=== PATIENT | male | born 1985 ===

== ENCOUNTER 2016-07-27 16:17 | Emergency (ER) | payer OTHER ==
[2016-07-27 16:37] VITALS: BP 109/51
[2016-07-27] MEDS ORDERED: cefTRIAXone VIAL(*) 1,000 MG VIAL IM ONE (17:27)
--- NOTE | 2016-07-27 17:27 | UC ---
[facility] HPI - HPI Summary HPI Summary: patient has been complaining of two days of ear pain, state it is very sore behind the left ear. area is swollen, lymphadenopathy noted. - History of Current Complaint Chief Complaint: UCEar Stated Complaint: LEFT EAR COMPLAINT Time Seen by Provider: 07/27/16 17:13 Hx Obtained From: Patient Onset/Duration: Sudden Onset, Lasting Days Severity: Moderate Pain Intensity: 4 Pain Scale Used: 0-10 Numeric Aggravating: Chewing Alleviating: Nothing Related History: Swelling, Other - erythema along back of oral mucosa on the right, cant open mouth all the way - Allergies/Home Medications Allergies/Adverse Reactions: Allergies Allergy/AdvReac Type Severity Reaction Status Date / Time Amoxicillin Allergy Hives Verified 07/27/16 16:38 Cefaclor [From [facility]] Allergy Hives Verified 07/27/16 16:38 Erythromycin Allergy Hives Verified 07/27/16 16:38 Penicillins Allergy Hives Verified 07/27/16 16:38 Home Medications: Home Medications Ibuprofen TAB* [Advil TAB*] 400 mg PO Q6H PRN 07/27/16 [History Confirmed ] PMH/Surg Hx/FS Hx/Imm Hx Previously Healthy: Yes - Surgical History Surgical History: None - Family History Known Family History: Positive: Cardiac Disease, Hypertension - Social History Alcohol Use: None Substance Use Type: None Smoking Status (MU): Heavy Every Day Tobacco Smoker Review of Systems Constitutional: Negative Skin: Negative Eyes: Negative ENT: Dental Pain, Sore Throat, Ear Ache Respiratory: Negative Cardiovascular: Negative Gastrointestinal: Negative Genitourinary: Negative Motor: Negative Neurovascular: Negative Musculoskeletal: Negative Neurological: Headache Psychological: Negative All Other Systems Reviewed And Are Negative: Yes Physical Exam Triage Information Reviewed: Yes Appearance: Well-Nourished, Ill-Appearing, Pain Distress Vital Signs: Initial Vital Signs Temp 98.3 F 07/27/16 16:34 Pulse 75 07/27/16 16:34 Resp 16 07/27/16 16:34 BP 109/51 07/27/16 16:34 Pulse Ox 99 07/27/16 16:34 Vital Signs Reviewed: Yes Eye Exam: Normal ENT: Positive: Pharyngeal erythema, Tonsillar swelling Dental Exam: Normal Dental: Positive: Abscess @ - at back tooth left side, Cellulitis @ - along left oral mucosa Neck exam: Normal Neck: Positive: Supple, Nontender, Enlarged Nodes @ - left behind the ear Respiratory Exam: Normal Respiratory: Positive: Chest non-tender, Lungs clear, Normal breath sounds Cardiovascular Exam: Normal Cardiovascular: Positive: RRR, No Murmur, Pulses Normal Abdominal Exam: Normal Abdomen Description: Positive: Nontender, No Organomegaly, Soft Bowel Sounds: Positive: Present Musculoskeletal Exam: Normal Musculoskeletal: Positive: Strength Intact, ROM Intact, No Edema Neurological Exam: Normal Neurological: Positive: Alert, Muscle Tone Normal Psychological Exam: Normal Skin Exam: Normal Dental Complaint Course/Dx - Course Course Of Treatment: hx obtained, exam performed, rochephin given IM, benadryl prescribed for possible hives, patient hsa multiple abx allergies, discussed the risk and benefits, will montior post injection and sen home with benadryl. encourage follow up with denitist if pain persists - Differential Dx/Diagnosis Differential Diagnosis/Dx: Dental Abscess, Dental Caries, Peritonsillar Abcess, Pharyngitis, Tonsillitis Provider Diagnoses: oral infection. lymphadenopathy Discharge - Discharge Plan Condition: Stable Disposition: HOME Patient Education Materials: Dental Abscess (ED) Additional Instructions: take the medication as prescribed. Use the benadryl as needed for any hives, if you develope any severe SOB, facial swelling or throat pain report to ER. Otherwise continue with ibuprofen for pain, warm compress to the area and salt water gargles. follow up with dentist if persists with treatment.
[2016-07-27] MEDS ORDERED: Lidocaine 1%* 5 ML VIAL ONE (17:31)
== END 2016-07-27 18:00 | disposition home or self-care (01) ==
LOC: UCCORT 16:17
DX: K12.2 Cellulitis and abscess of mouth (principal); R59.1 Generalized enlarged lymph nodes; Z88.1 Allergy status to other antibiotic agents; Z88.0 Allergy status to penicillin; F17.210 Nicotine dependence, cigarettes, uncomplicated
CPT/HCPCS: 96372; 99202; G0463; J0696

== ENCOUNTER 2016-09-20 09:53 | Emergency (ER) | payer OTHER ==
[2016-09-20 10:29] VITALS: BP 135/68
--- NOTE | 2016-09-20 10:32 | ED ---
Upper Extremity Pain - HPI Summary HPI Summary: 30 yr old male with right forearm pain. Onset last evening. A refigerator fell on his arm when he was using a pat up a ramp. he has no other complaints. The pain level is 5/10. He has pain localized to the mid forearm. - History of Current Complaint Chief Complaint: UCUpperExtremity Stated Complaint: RIGHT ARM INJURY Time Seen by Provider: 09/20/16 10:22 - Allergies/Home Medications Allergies/Adverse Reactions: Allergies Allergy/AdvReac Type Severity Reaction Status Date / Time Amoxicillin Allergy Hives Verified 09/20/16 10:16 Cefaclor [From Ceclor] Allergy Hives Verified 09/20/16 10:16 Erythromycin Allergy Hives Verified 09/20/16 10:16 Penicillins Allergy Hives Verified 09/20/16 10:16 PMH/Surg Hx/FS Hx/Imm Hx Infectious Disease History: No Infectious Disease History: Denies: Traveled Outside the [place] in Last 30 Days - Family History Known Family History: Positive: Cardiac Disease, Hypertension - Social History Alcohol Use: None Substance Use Type: Reports: None Smoking Status (MU): Light Every Day Tobacco Smoker Type: Cigarettes Amount Used/How Often: 7 cigarettes daily Review of Systems Constitutional: Negative Eyes: Negative ENT: Negative Positive: Other - forearm pain All Other Systems Reviewed And Are Negative: Yes Physical Exam Triage Information Reviewed: Yes Vital Signs On Initial Exam: Initial Vitals Temp Pulse Resp BP Pulse Ox 98.4 F 86 16 135/68 98 09/20/16 10:16 09/20/16 10:16 09/20/16 10:16 09/20/16 10:16 09/20/16 10:16 Vital Signs Reviewed: Yes Appearance: Positive: Well-Appearing, No Pain Distress Head/Face: Positive: Normal Head/Face Inspection Eyes: Positive: Normal, EOMI ENT: Positive: Normal ENT inspection Dental: Positive: Percussion Tenderness @ Respiratory/Lung Sounds: Positive: Clear to Auscultation Cardiovascular: Positive: Pulses are Symmetrical in both Upper and Lower Extremities - radial pulses symmetric. Legs not examined. Musculoskeletal: Positive: Other - right forearm, mid shaft radius with tenderness, slight soft tissue swelling. No crepitance. Neurological: Positive: Normal, Sensory/Motor Intact, Alert, Oriented to Person Place, Time, CN Intact II-III Psychiatric: Positive: Normal Diagnostics - Vital Signs Vital Signs Temp Pulse Resp BP Pulse Ox 09/20/16 10:16 98.4 F 86 16 135/68 98 - Laboratory Lab Statement: Any lab studies that have been ordered have been reviewed, and results considered in the medical decision making process. Course/Dx - Course Course Of Treatment: 30 yr old male with contusion to forearm. DC home follow up with pMD. - Diagnoses Provider Diagnoses: Contusion, forearm Discharge - Discharge Plan Condition: Good Disposition: HOME Patient Education Materials: Contusion in Adults (ED) Referrals: Janee MANJARREZ,Hay Maciel [Primary Care Provider] -
--- NOTE | 2016-09-20 10:48 | RAD ---
HISTORY: Crush injury to right forearm COMPARISONS: None VIEWS: 2, Frontal and lateral views of the right forearm FINDINGS: BONE DENSITY: Normal. BONES: There is no displaced fracture. JOINTS: There is no arthropathy. ALIGNMENT: There is no dislocation. SOFT TISSUES: Unremarkable. OTHER FINDINGS: None. IMPRESSION: NO ACUTE OSSEOUS INJURY. IF SYMPTOMS PERSIST, RECOMMEND REPEAT IMAGING.
== END 2016-09-20 11:09 | disposition home or self-care (01) ==
LOC: UCCORT 09:53
DX: S50.11XA Contusion of right forearm, initial encounter (principal); W20.8XXA Other cause of strike by thrown, projected or falling object, initial encounter; Y93.9 Activity, unspecified; Y99.9 Unspecified external cause status; I10 Essential (primary) hypertension; F17.210 Nicotine dependence, cigarettes, uncomplicated; Z88.1 Allergy status to other antibiotic agents; Z88.0 Allergy status to penicillin
CPT/HCPCS: 99212; G0463

== ENCOUNTER 2016-10-20 11:35 | Emergency (ER) | payer OTHER ==
[2016-10-20] MEDS ORDERED: Fluorescein Sodium TOPICAL* 1 MG TEST OPHTHALMIC ONE (11:57)
[2016-10-20] MEDS ORDERED: Eye Irrigation Solution 30 ML BOTTLE RIGHT EYE ONE (11:59)
[2016-10-20] MEDS ORDERED: Tetracaine 0.5% OPTH.SOL 4 ML* 1 DROP BTL RIGHT EYE SCH (12:00)
[2016-10-20 12:02] VITALS: BP 129/66
[2016-10-20] MEDS ORDERED: Tetracaine 0.5% OPTH.SOL 4 ML* 1 DROP BTL RIGHT EYE ONE (12:04)
--- NOTE | 2016-10-20 12:32 | UC ---
Eye Complaint HPI - HPI Summary HPI Summary: he was using a weed eater today and suddenly felt a FB and irritation. No significant pain but more irritation. no contacts. - History of Current Complaint Chief Complaint: Leslie Stated Complaint: RIGHT EYE PAIN Time Seen by Provider: 10/20/16 11:57 Hx Obtained From: Family/Certified Medical Records Coder Onset/Duration: Sudden Onset Timing: Constant Severity Initially: Moderate Severity Currently: Moderate Location of Injury: Conjunctiva Character: Sharp Aggravating Factor(s): Nothing Alleviating Factor(s): Other - ice Associated Signs And Symptoms: Positive: Drainage (Clear). Negative: Photophobia, Vision Impairment Bilateral, Vision Impairment Right, Vision Impairment Left, Fever, Swelling - Allergies/Home Medications Allergies/Adverse Reactions: Allergies Allergy/AdvReac Type Severity Reaction Status Date / Time Amoxicillin Allergy Hives Verified 10/20/16 11:42 Cefaclor [From Ceclor] Allergy Hives Verified 10/20/16 11:42 Erythromycin Allergy Hives Verified 10/20/16 11:42 Penicillins Allergy Hives Verified 10/20/16 11:42 PMH/Surg Hx/FS Hx/Imm Hx Respiratory History Of: Reports: Asthma - A CHILD - Surgical History Surgical History: None - Family History Known Family History: Positive: Cardiac Disease, Hypertension - Social History Alcohol Use: Occasionally Substance Use Type: Marijuana Substance Use Comment - Amount & Last Used: ON OCCASION Smoking Status (MU): Light Every Day Tobacco Smoker Type: Cigarettes Amount Used/How Often: 1/2 PPD Household Exposure Type: Cigarettes Review of Systems All Other Systems Reviewed And Are Negative: Yes Physical Exam Triage Information Reviewed: Yes Appearance: Well-Appearing, Well-Nourished, Pain Distress - He is holding ice to right eye but he is in good spirits. Vital Signs: Initial Vital Signs Temp 98.4 F 10/20/16 11:42 Pulse 103 10/20/16 11:42 Resp 20 10/20/16 11:42 BP 129/66 10/20/16 11:42 Pulse Ox 98 10/20/16 11:42 Vital Signs Reviewed: Yes Eye Exam: Other - right eye no irregular pupil or hymphema. fluorescien staining shows no abrasion or ulcer. Tetracaine improves symptoms immediately. Flushed with saline and eye lids inverted without obvious FB. Eyes: Positive: Conjunctiva Inflamed ENT Exam: Normal Neck exam: Normal Respiratory Exam: Normal Cardiovascular Exam: Normal Abdominal Exam: Normal Musculoskeletal Exam: Normal Neurological Exam: Normal Psychological Exam: Normal Skin Exam: Normal Eye Complaint Course/Dx - Differential Dx/Diagnosis Provider Diagnoses: eye foreign body. Discharge - Discharge Plan Condition: Good Disposition: HOME Prescriptions: Sulfacetamide 10 % OPTH.HAYDE* [Sulamyd 10% Opth*] 1 drop RIGHT EYE Q4H #1 btl Patient Education Materials: Eye Foreign Body (ED) Referrals: Janee MANJARREZ,Hay Maciel [Primary Care Provider] - Juanpablo Hurtado MD [Medical Doctor] -
== END 2016-10-20 12:40 | disposition home or self-care (01) ==
LOC: UCCORT 11:35
DX: T15.11XA Foreign body in conjunctival sac, right eye, initial encounter (principal); X58.XXXA Exposure to other specified factors, initial encounter; Y93.H2 Activity, gardening and landscaping; Y92.9 Unspecified place or not applicable; J45.909 Unspecified asthma, uncomplicated; Z88.1 Allergy status to other antibiotic agents; Z88.0 Allergy status to penicillin; F17.210 Nicotine dependence, cigarettes, uncomplicated
CPT/HCPCS: 99212; A9270-GY; G0463

== ENCOUNTER 2017-11-26 21:03 | Emergency (ER) | payer OTHER ==
[2017-11-26 21:28] VITALS: BP 103/67
--- NOTE | 2017-11-26 21:52 | UC ---
Lower Extremity/Ankle HPI - HPI Summary HPI Summary: C/O right foot pain after getting pinned under translift at work. Able to walk with a lot of pain. - History of Current Complaint Chief Complaint: UCLowerExtremity Stated Complaint: R FOOT INJURY Time Seen by Provider: 11/26/17 21:41 Hx Obtained From: Patient Onset/Duration: Sudden Onset Severity Initially: Severe Severity Currently: Severe Pain Intensity: 7 Aggravating Factor(s): Standing, Ambulation Alleviating Factor(s): Rest, Elevation, Ice Related History: Occupational Injury - Allergies/Home Medications Allergies/Adverse Reactions: Allergies Allergy/AdvReac Type Severity Reaction Status Date / Time amoxicillin Allergy Hives Verified 11/26/17 21:29 cefaclor [From Ceclor] Allergy Hives Verified 11/26/17 21:29 erythromycin base Allergy Hives Verified 11/26/17 21:29 Penicillins Allergy Hives Verified 11/26/17 21:29 PMH/Surg Hx/FS Hx/Imm Hx Previously Healthy: Yes - Surgical History Surgical History: None - Family History Known Family History: Positive: Cardiac Disease, Hypertension, Diabetes - Social History Occupation: Employed Full-time Lives: With Family Alcohol Use: None Substance Use Type: None Substance Use Comment - Amount & Last Used: ON OCCASION Smoking Status (MU): Heavy Every Day Tobacco Smoker Type: Cigarettes Amount Used/How Often: 7 cigarettes daily Household Exposure Type: Cigarettes Review of Systems Skin: Bruising - right foot Musculoskeletal: Arthralgia - right foot Is Patient Immunocompromised?: No All Other Systems Reviewed And Are Negative: Yes Physical Exam Triage Information Reviewed: Yes Appearance: Well-Appearing, Well-Nourished, Pain Distress Vital Signs: Initial Vital Signs Temp 98.2 F 11/26/17 21:24 Pulse 77 11/26/17 21:24 Resp 16 11/26/17 21:24 BP 103/67 11/26/17 21:24 Pulse Ox 99 11/26/17 21:24 Vital Signs Reviewed: Yes Eyes: Positive: Conjunctiva Clear Neck exam: Normal Respiratory Exam: Normal Musculoskeletal: Positive: ROM Limited @ - right 1st MTP with significant swelling, Other: - Tender over the MTP Neurological: Positive: Other: - increased sharp sensitivity over the 1st toe Psychological Exam: Normal Lower Extremity Course/Dx - Differential Dx/Diagnosis Differential Diagnosis/HQI/PQRI: Contusion, Fracture (Closed), Sprain Provider Diagnoses: Contusion foot. Neuritis foot Discharge - Sign-Out/Discharge Documenting (check all that apply): Discharge/Admit/Transfer - Discharge Plan Condition: Stable Disposition: HOME Prescriptions: Gabapentin CAP(*) [Neurontin 300 CAP(*)] 300 mg PO TID #90 cap Patient Education Materials: Foot Contusion (ED), Gabapentin (By mouth) Referrals: NORIS Medellin [Primary Care Provider] - Additional Instructions: It is so painful because you have bruised a nerve. Gabapentin helps to calm down the irritated nerve. - Billing Disposition and Condition Condition: STABLE Disposition: Home
--- NOTE | 2017-11-26 22:09 | RAD ---
Indication: Right foot injury. 3 views of the right foot demonstrates no fracture. No other bone or joint abnormality is noted. IMPRESSION: No fracture of the right foot noted.
== END 2017-11-26 22:20 | disposition home or self-care (01) ==
LOC: UCCORT 21:03
DX: S90.31XA Contusion of right foot, initial encounter (principal); W31.89XA Contact with other specified machinery, initial encounter; Y93.9 Activity, unspecified; Y92.69 Other specified industrial and construction area as the place of occurrence of the external cause; Y99.0 Civilian activity done for income or pay; M79.2 Neuralgia and neuritis, unspecified; Z88.1 Allergy status to other antibiotic agents; Z88.0 Allergy status to penicillin; F17.210 Nicotine dependence, cigarettes, uncomplicated
CPT/HCPCS: 99212; G0463